=== PATIENT | female | born 1950 | race Caucasian/White ===

== ENCOUNTER 2019-11-05 08:35 | Emergency (ER) | payer MEDICARE ==
[2019-11-05 08:41] VITALS: PULSE 85; RESP 18
[2019-11-05] MEDS ORDERED: PROPARACAINE 0.5% OPHTH DROPS 15 ML BTL BOTH EYES STA (08:58)
[2019-11-05] MEDS ORDERED: AMOXIC-POT CLAV 875MG STARTER 2 EACH TABLET PO STA (08:59)
--- NOTE | 2019-11-05 09:08 | ED ---
URI HPI - General Chief Complaint: Upper Respiratory Infection Stated Complaint: Poss pink eye Time Seen by Provider: 11/05/19 08:41 Source: patient, RN notes reviewed, old records reviewed Mode of arrival: ambulatory Limitations: no limitations - History of Present Illness Initial Comments: Patient's a 6-year-old female, who presents emergency department today for evaluation for concerns for bilateral eye conjunctival injection, pain irritation and soft tissue swelling around the eye for the past day. Patient reports that she was having upper respiratory infection, common cold last week. She reports that she was starting to improve. She reports that last night before going into sabianism he started having some irritation of her eyes and quickly noticed some purulent drainage coming from the eyes. Patient states that her grandson has had upper respiratory infections and strep. Patient reports no fevers. She denies any pain with bright lights in the eye or pain with extraocular eye movements. - Related Data Previous Rx's Medication Instructions Recorded Amoxic-Pot Clav 875-125Mg 1 tab PO Q12HR #20 tablet 11/05/19 [Augmentin 875-125] Ofloxacin 0.3% Ophth Soln [Ocuflox 1 - 2 drops BOTH EYES Q4H #1 bottle 11/05/19 Ophth Soln] Allergies Allergy/AdvReac Type Severity Reaction Status Date / Time azithromycin Allergy Abdominal Verified 11/05/19 09:14 Pain Review of Systems ROS Statement: Those systems with pertinent positive or pertinent negative responses have been documented in the HPI. ROS Other: All systems not noted in ROS Statement are negative. Past Medical History Past Medical History: Hyperlipidemia History of Any Multi-Drug Resistant Organisms: None Reported Past Surgical History: No Surgical Hx Reported Past Psychological History: No Psychological Hx Reported Smoking Status: Never smoker Past Alcohol Use History: Rare Past Drug Use History: None Reported General Exam - General Exam Comments Initial Comments: 6-year-old female. Alert and oriented 3. Patient has no distress. Limitations: no limitations General appearance: alert, in no apparent distress Head exam: Present: atraumatic, normocephalic, normal inspection Eye exam: Present: normal appearance, PERRL, EOMI. Absent: scleral icterus, conjunctival injection, periorbital swelling ENT exam: Present: normal exam, mucous membranes moist, other (bilateral conjunctival injection. Purulent drainage noted from bilateral eyelids. Patient has surrounding swelling over the area periobital spaces. ) Neck exam: Present: normal inspection. Absent: tenderness, meningismus, lymphadenopathy Respiratory exam: Present: normal lung sounds bilaterally. Absent: respiratory distress, wheezes, rales, rhonchi, stridor Cardiovascular Exam: Present: regular rate, normal rhythm, normal heart sounds. Absent: systolic murmur, diastolic murmur, rubs, gallop, clicks GI/Abdominal exam: Present: soft, normal bowel sounds. Absent: distended, tenderness, guarding, rebound, rigid Extremities exam: Present: normal inspection, full ROM, normal capillary refill. Absent: tenderness, pedal edema, joint swelling, calf tenderness Back exam: Present: normal inspection Neurological exam: Present: alert, oriented X3, CN II-XII intact Psychiatric exam: Present: normal affect, normal mood Course Vital Signs 11/05/19 08:38 Temperature 98.1 F Pulse Rate 85 Respiratory 18 Rate Blood Pressure 176/95 O2 Sat by Pulse 99 Oximetry Medical Decision Making - Medical Decision Making 6-year-old female presents emergency to 1 day of bilateral eye irritation, drainage. She had upper respiratory infection and common cold weeks ago. Discussed the Patient has concerns her. Orbital cellulitis and treated the P atient with Augmentin and antibiotic eyedrops. Patient did have a wound culture completed over the purulent fluid from the eye. Patient advised to follow-up with primary care doctor ophthalmology pleuritic 4 scene eye exam was also performed shows no signs of abrasion or ulceration. Disposition Clinical Impression: Periorbital cellulitis, Conjunctivitis Disposition: HOME SELF-CARE Condition: Good Instructions (If sedation given, give patient instructions): Periorbital Cellul itis in Adults (ED), Conjunctivitis (ED) Additional Instructions: Patient has follow-up with ENT, and ophthalmology. Take the antibiotics as prescribed. With the antibiotic drop and every 4 hours in both eyes. After she days Patient can and do this 4 times a day. He states that orally and a bad experience there is any eye pain, visual changes or other complaints was return for reevaluation. Prescriptions: Amoxic-Pot Clav 875-125Mg [Augmentin 875-125] 1 tab PO Q12HR #20 tablet Ofloxacin 0.3% Ophth Soln [Ocuflox Ophth Soln] 1 - 2 drops BOTH EYES Q4H #1 bottle Is patient prescribed a controlled substance at d/c from ED?: No Referrals: Nonstaff,Physician [Primary Care Provider] - 1-2 days Luis Chiang DO [Doctor of Osteopathic Medicine] - 1-2 days Thea Lindo MD [STAFF PHYSICIAN] - 1-2 days Time of Disposition: 09:05
[2019-11-05 10:19] VITALS: BP 170/80; TEMP 98
== END 2019-11-05 10:17 | disposition home or self-care (01) ==
LOC: EC 08:35
DX: L03.213 Periorbital cellulitis (principal); H10.9 Unspecified conjunctivitis; J06.9 Acute upper respiratory infection, unspecified; Z88.1 Allergy status to other antibiotic agents
CPT/HCPCS: 87070; 87205; 99284

== ENCOUNTER 2019-12-27 05:52 | Emergency (ER) | payer MEDICARE ==
[2019-12-27 05:59] VITALS: BP 133/79; PULSE 95; RESP 20; TEMP 98
--- NOTE | 2019-12-27 06:26 | ED ---
Eye Problem HPI - General Chief complaint: Eye Problems Stated complaint: eye problem Time Seen by Provider: 12/27/19 06:01 Source: patient, RN notes reviewed Mode of arrival: ambulatory Limitations: no limitations - History of Present Illness Initial comments: 69-year-old female presents emergency Department chief complaint of left eye irritation, nasal congestion, pressure. Patient states that she has been sick last week progressively getting worse. Patient states she has a cough and morning from her drainage but denies any chest pain or shortness breath. Patient states she has left maxillary sinus tenderness pressure she's been trying to mother, cough and cold medications which have not helped much. Patient woke up with left eye drainage, crusting in which she use some old eyedrops. Patient states it seemed to help some itchiness. Patient denies fevers or chills patient offers no complaints. - Related Data Previous Rx's Medication Instructions Recorded Amoxic-Pot Clav 875-125Mg 1 tab PO Q12HR #20 tablet 12/27/19 [Augmentin 875-125] Ofloxacin 0.3% Ophth Soln [Ocuflox 1 - 2 drops BOTH EYES Q4H #1 bottle 12/27/19 Ophth Soln] Allergies Allergy/AdvReac Type Severity Reaction Status Date / Time azithromycin Allergy Abdominal Verified 12/27/19 05:59 Pain Review of Systems ROS Statement: Those systems with pertinent positive or pertinent negative responses have been documented in the HPI. ROS Other: All systems not noted in ROS Statement are negative. Past Medical History Past Medical History: Hyperlipidemia History of Any Multi-Drug Resistant Organisms: None Reported Past Surgical History: Tonsillectomy Past Psychological History: No Psychological Hx Reported Smoking Status: Never smoker Past Alcohol Use History: Rare Past Drug Use History: None Reported General Exam Limitations: no limitations General appearance: alert, in no apparent distress Head exam: Present: atraumatic, normocephalic, normal inspection Eye exam: Present: PERRL, EOMI, conjunctival injection (Mild left-sided). Absent: normal appearance, scleral icterus, periorbital swelling ENT exam: Present: normal exam, normal oropharynx, mucous membranes moist, TM's normal bilaterally, normal external ear exam Neck exam: Present: normal inspection, full ROM. Absent: tenderness, meningismus, lymphadenopathy Respiratory exam: Present: normal lung sounds bilaterally. Absent: respiratory distress, wheezes, rales, rhonchi, stridor Cardiovascular Exam: Present: regular rate, normal rhythm, normal heart sounds. Absent: systolic murmur, diastolic murmur, rubs, gallop, clicks Neurological exam: Present: alert, oriented X3, CN II-XII intact Course Vital Signs 12/27/19 05:55 Temperature 98 F Pulse Rate 95 Respiratory 20 Rate Blood Pressure 133/79 O2 Sat by Pulse 97 Oximetry Medical Decision Making - Medical Decision Making Patient we treated for acute sinusitis. Patient will be placed on Augmentin, she does have ALLERGIES to azithromycin. Patient does have some mild left pain medication with ciprofloxacin drops. Patient will follow-up with ENT return parameters were discussed. Disposition Clinical Impression: Acute sinusitis Disposition: HOME SELF-CARE Condition: Stable Instructions (If sedation given, give patient instructions): Sinusitis (ED) Additional Instructions: Please return to the Emergency Department if symptoms worsen or any other concerns. Prescriptions: Amoxic-Pot Clav 875-125Mg [Augmentin 875-125] 1 tab PO Q12HR #20 tablet Ofloxacin 0.3% Ophth Soln [Ocuflox Ophth Soln] 1 - 2 drops BOTH EYES Q4H #1 bottle Is patient prescribed a controlled substance at d/c from ED?: No Referrals: Nonstaff,Physician [Primary Care Provider] - 1-2 days Luis Chiang DO [Doctor of Osteopathic Medicine] - 1-2 days Time of Disposition: 06:26
== END 2019-12-27 06:43 | disposition home or self-care (01) ==
LOC: EC 05:52
DX: J01.90 Acute sinusitis, unspecified (principal); Z88.1 Allergy status to other antibiotic agents; Z90.89 Acquired absence of other organs
CPT/HCPCS: 99283

== ENCOUNTER 2020-10-25 12:57 | Emergency (ER) | payer MEDICARE ==
[2020-10-25 13:19] VITALS: TEMP 98.4
[2020-10-25] MEDS ORDERED: SODIUM CHLORIDE 0.9% 500 ML 500 ML IV STA (13:55)
[2020-10-25 14:11] LABS: Basophils # (A) 0.1 k/uL (0-0.2); Basophils % (A) 1 %; Eosinophils # (A) 0.1 k/uL (0-0.7); Eosinophils % (A) 1 %; HCT 44.7 % (34.0-46.0); HGB 15.3 gm/dL (11.4-16.0); Lymphocytes # (A) 1.8 k/uL (1.0-4.8); Lymphocytes % (A) 24 %; MCH 30.2 pg (25.0-35.0); MCHC 34.2 g/dL (31.0-37.0); MCV 88.4 fL (80.0-100.0); Mean Platelet Volume 6.9; Monocytes # (A) 0.3 k/uL (0-1.0); Monocytes % (A) 3 %; Neutrophils # (A) 5.2 k/uL (1.3-7.7); Neutrophils % (A) 70 %; Platelet Count 285 k/uL (150-450); RBC 5.06 m/uL (3.80-5.40); RDW 12.3 % (11.5-15.5); WBC 7.5 k/uL (3.8-10.6)
--- NOTE | 2020-10-25 14:15 | ED ---
General Adult HPI - General Chief complaint: Arrhythmia/Palpitations Stated complaint: headache/fever Time Seen by Provider: 10/25/20 13:55 Source: patient Mode of arrival: ambulatory Limitations: no limitations - History of Present Illness Initial comments: Dictation was produced using [employer] dictation software. please excuse any grammatical, word or spelling errors. This patient was cared for during a federal and state declared state of emerg ency secondary to Covid 19 Chief Complaint: 70-year-old female presents today with palpitations. History of Present Illness: 70-year-old female she tested positive for: Approximately one month ago. Patient states that since then she still been having persistent symptoms with headaches and episodes of fevers. She called her primary care physician who told her to come to the emergency department to be evaluated. Patient states that she feels like she isn't really getting better. She denies any loss of energy. She has no cough. She notices that she's been having some palpitations. Denies any dyspnea or shortness of breath. Patient states her headache is occipital. She denies any vision loss or extremity numbness or tingling. She states is not thunderclap it's been ongoing for the last month or so since being diagnosed over 19. She denies any temporal changes during the day. The ROS documented in this emergency department record has been reviewed and confirmed by me. Those systems with pertinent positive or negative responses have been documented in the HPI. All other systems are other negative and/or noncontributory. PHYSICAL EXAM: General Impression: Alert and oriented x3, not in acute distress HEENT: Normocephalic atraumatic, extra-ocular movements intact, pupils equal and reactive to light bilaterally, mucous membranes moist. Cardiovascular: Heart regular rate and rhythm Chest: Able to complete full sentences, no retractions, no tachypnea Abdomen: abdomen soft, non-tender, non-distended, no organomegaly Musculoskeletal: Pulses present and equal in all extremities, no peripheral edema Motor: no focal deficits noted Neurological: CN II-XII grossly intact, no focal motor or sensory deficits noted Skin: Intact with no visualized rashes Psych: Normal affect and mood ED course: 70-year-old female presents with palpitations. She's been struggling with coronavirus symptoms for the last month. As upon arrival are within acceptable limits. Laboratory evaluation obtained. CBC is unremarkable. Coag panel is negative. Metabolic panel is negative. Troponin is negative. Chest x-ray is nonacute. Patient observed in emergency department for approximately 2 hours and found to be stable medical condition. She is well-appearing have a normal conversation does not appear to be in acute distress. Long discussion was held with patient that her symptoms don't appear to be critical. She does have elevated blood pressure however she is not having symptoms of hypertensive emergency. She is told to address this with her primary care physician. Patient's symptoms are likely secondary to lingering postviral symptoms. Patient requested that she have her antibodies tested here in emergency department for a Coban 19 however we do not offer that service according to chart tenderness. Patient be discharged. - Related Data Previous Rx's Medication Instructions Recorded Amoxic-Pot Clav 875-125Mg 1 tab PO Q12HR #20 tablet 12/27/19 [Augmentin 875-125] Ofloxacin 0.3% Ophth Soln [Ocuflox 1 - 2 drops BOTH EYES Q4H #1 bottle 12/27/19 Ophth Soln] Allergies Allergy/AdvReac Type Severity Reaction Status Date / Time azithromycin Allergy Abdominal Verified 10/25/20 13:19 Pain Review of Systems ROS Statement: Those systems with pertinent positive or pertinent negative responses have been documented in the HPI. ROS Other: All systems not noted in ROS Statement are negative. Past Medical History Past Medical History: Hyperlipidemia Additional Past Medical History / Comment(s): Covid 19 10/06/2020 History of Any Multi-Drug Resistant Organisms: None Reported Past Surgical History: Tonsillectomy Past Psychological History: No Psychological Hx Reported Past Alcohol Use History: Rare Past Drug Use History: None Reported General Exam Limitations: no limitations Course Vital Signs 10/25/20 13:15 Temperature 98.4 F Pulse Rate 100 Respiratory 20 Rate Blood Pressure 173/79 O2 Sat by Pulse 97 Oximetry Medical Decision Making - Lab Data Result diagrams: 10/25/20 13:58 10/25/20 13:58 Lab Results 10/25/20 10/25/20 10/25/20 Range/Units 13:58 13:58 13:58 WBC 7.5 (3.8-10.6) k/uL RBC 5.06 (3.80-5.40) m/uL Hgb 15.3 (11.4-16.0) gm/dL Hct 44.7 (34.0-46.0) % MCV 88.4 (80.0-100.0) fL MCH 30.2 (25.0-35.0) pg MCHC 34.2 (31.0-37.0) g/dL RDW 12.3 (11.5-15.5) % Plt Count 285 (150-450) k/uL MPV 6.9 Neutrophils % 70 % Lymphocytes % 24 % Monocytes % 3 % Eosinophils % 1 % Basophils % 1 % Neutrophils # 5.2 (1.3-7.7) k/uL Lymphocytes # 1.8 (1.0-4.8) k/uL Monocytes # 0.3 (0-1.0) k/uL Eosinophils # 0.1 (0-0.7) k/uL Basophils # 0.1 (0-0.2) k/uL PT 9.9 (9.0-12.0) sec INR 0.9 (<1.2) APTT 23.7 (22.0-30.0) sec Sodium 138 (137-145) mmol/L Potassium 4.3 (3.5-5.1) mmol/L Chloride 106 (98-107) mmol/L Carbon Dioxide 25 (22-30) mmol/L Anion Gap 7 mmol/L BUN 18 H (7-17) mg/dL Creatinine 0.78 (0.52-1.04) mg/dL Est GFR (CKD-EPI)AfAm 89 (>60 ml/min/1.73 sqM) Est GFR (CKD-EPI)NonAf 77 (>60 ml/min/1.73 sqM) Glucose 107 H (74-99) mg/dL Calcium 9.8 (8.4-10.2) mg/dL Magnesium 1.9 (1.6-2.3) mg/dL Total Bilirubin 0.7 (0.2-1.3) mg/dL AST 54 H (14-36) U/L ALT 49 H (4-34) U/L Alkaline Phosphatase 83 (38-126) U/L Troponin I (0.000-0.034) ng/mL Total Protein 7.8 (6.3-8.2) g/dL Albumin 4.6 (3.5-5.0) g/dL TSH 4.320 (0.465-4.680) mIU/L 10/25/20 Range/Units 13:58 WBC (3.8-10.6) k/uL RBC (3.80-5.40) m/uL Hgb (11.4-16.0) gm/dL Hct (34.0-46.0) % MCV (80.0-100.0) fL MCH (25.0-35.0) pg MCHC (31.0-37.0) g/dL RDW (11.5-15.5) % Plt Count (150-450) k/uL MPV Neutrophils % % Lymphocytes % % Monocytes % % Eosinophils % % Basophils % % Neutrophils # (1.3-7.7) k/uL Lymphocytes # (1.0-4.8) k/uL Monocytes # (0-1.0) k/uL Eosinophils # (0-0.7) k/uL Basophils # (0-0.2) k/uL PT (9.0-12.0) sec INR (<1.2) APTT (22.0-30.0) sec Sodium (137-145) mmol/L Potassium (3.5-5.1) mmol/L Chloride (98-107) mmol/L Carbon Dioxide (22-30) mmol/L Anion Gap mmol/L BUN (7-17) mg/dL Creatinine (0.52-1.04) mg/dL Est GFR (CKD-EPI)AfAm (>60 ml/min/1.73 sqM) Est GFR (CKD-EPI)NonAf (>60 ml/min/1.73 sqM) Glucose (74-99) mg/dL Calcium (8.4-10.2) mg/dL Magnesium (1.6-2.3) mg/dL Total Bilirubin (0.2-1.3) mg/dL AST (14-36) U/L ALT (4-34) U/L Alkaline Phosphatase (38-126) U/L Troponin I <0.012 (0.000-0.034) ng/mL Total Protein (6.3-8.2) g/dL Albumin (3.5-5.0) g/dL TSH (0.465-4.680) mIU/L Disposition Clinical Impression: Headache, Fever, Palpitations Disposition: HOME SELF-CARE Condition: Good Instructions (If sedation given, give patient instructions): Heart Palpitations (ED) Additional Instructions: Follow-up with her primary care physician for outpatient management of palpitations, elevated blood pressure, and post viral symptoms. Is patient prescribed a controlled substance at d/c from ED?: No Referrals: Nonstaff,Physician [Primary Care Provider] - 1-2 days Time of Disposition: 15:09
[2020-10-25 14:25] LABS: Albumin 4.6 g/dL (3.5-5.0); Calcium 9.8 mg/dL (8.4-10.2); INR 0.9 (<1.2); Magnesium 1.9 mg/dL (1.6-2.3); Partial Thromboplastin Time 23.7 sec (22.0-30.0); Potassium 4.3 mmol/L (3.5-5.1); Prothrombin Time 9.9 sec (9.0-12.0); Total Bilirubin 0.7 mg/dL (0.2-1.3); Total Protein 7.8 g/dL (6.3-8.2)
--- NOTE | 2020-10-25 14:29 | XR ---
EXAMINATION TYPE: XR chest 1V portable DATE OF EXAM: 10/25/2020 HISTORY: Shortness of breath. COMPARISON: None. TECHNIQUE: Single view of the chest is submitted. FINDINGS: Demonstrated are scattered senescent parenchymal change. There is no evidence for focal infiltrate. The heart is stable. Hilar and mediastinal structures are within normal limits. Degenerative changes are seen of the dorsal spine. IMPRESSION: 1. Chronic changes without evidence for acute pulmonary disease.
[2020-10-25] MEDS ORDERED: DEXAMETHASONE SOD PHOSPHATE 10 MG/ML 1 ML VIAL IV STA (15:07)
[2020-10-25 15:30] VITALS: BP 192/94; PULSE 81; RESP 17
== END 2020-10-25 16:00 | disposition home or self-care (01) ==
LOC: EC 12:57
DX: R00.2 Palpitations (principal); R50.9 Fever, unspecified; R51.9 Headache, unspecified; Z88.1 Allergy status to other antibiotic agents; Z86.19 Personal history of other infectious and parasitic diseases
CPT/HCPCS: 99285 ×2; 96374 ×2; 96361 ×3; 36415; 93005; 80053; 83735; 84443; 84484; 85025; 85610; 85730; 71045; J1100

== ENCOUNTER → 2024-07-31 | Outpatient (CLI) | payer MEDICARE ==
--- NOTE | 2024-07-31 10:50 | XR ---
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 Additional bending and flexion views. FINDINGS: No evidence of any acute osseous pathology. No evidence of loss of vertebral body height i s seen. There is grade 1 anterolisthesis of L4 and L5 alignment of the lumbar vertebral bodies. Scatt ered disc space narrowing. Multilevel marginal osteophyte formation throughout the visualized spine. There is facet joint arthropathy throughout the spine. Scattered at least mild neural foraminal steno sis. Atherosclerosis of the arterial vasculature. IMPRESSION: 1. No acute fracture. 2. Moderate degeneration changes spine. 3. Grade 1 anterolisthesis of L4 and L5. [facility], , 07/31/2024 10:47 AM
== END | disposition home or self-care (01) ==
LOC: RADXRMAIN 10:15
PROVIDERS: ATTEND Anesthesiology
DX: M47.816 Spondylosis without myelopathy or radiculopathy, lumbar region
CPT/HCPCS: 72114